=== PATIENT | female | born 1955 | race Caucasian/White ===

== ENCOUNTER 2018-02-06 15:52 | Inpatient (IN) | payer BC ==
[~2018-02-06] VITALS: Ht 160 cm; Wt 58.6 kg
--- NOTE | ~2018-02-06 | HEMODYNAMI ---
PATIENT:PIPER VALDOVINOS MEDICAL RECORD: [id number] : 57 LOCATION:D.MS [facility] ADMISSION DATE: 02/06/18 Generatedon:02/08/201811:33 Patient name: PIPER VALDOVINOS Patient #: [id number] SSN: : 1 12/05/1954 Date of study: 02/08/2018 Page: Of Hemodynamic Procedure Report Patient Data Patient Demographics Procedure consent was obtained First Name: PIPER Gender: Female Last Name: ARUNA : 1955 Middle Initial: E Age: 62 year(s) Patient #: [id number] Race: Unknown Additional ID: [id number] Contact details Address: [address] [place] [address] State: [place] City: [place] Zip code: [address] Past Medical History Allergies: No known allergies Admission Admission Data Admission Date: 02/06/2018 Admission Time: 16:00 Room #: [id number].[id number] Weight (lbs.): 129 Weight (kg.): 58.51 Procedure Procedure Types Cath Procedure Peripheral Cath Diagnostic Procedure Cath Peripheral Nephro Nephrostomy Tubes Procedure Description Procedure Date Procedure Date: 02/08/2018 Procedure Start Time: 11:10 Procedure Staff Name Function Arben Delvalle MD Performing Physician Ophelia Stallworth RT Fiberglass Roving Winder Nhan Theodore CRNA Additional personnel Ophelia Stallworth RT Monitor Megan Gibbs RN Nurse Leonard Olvera RT Scrub Procedure Data Cath Procedure Fluoroscopy Diagnostic fluoroscopy Total fluoroscopy Time: 1.8 time: 1.8 min min Diagnostic fluoroscopy Total fluoroscopy dose: 18 dose: 18 mGy mGy Contrast Material Contrast Material Type Amount (ml) Isovue 300 12 Procedure Medications Medication Administration Route Dosage Heparin Flush Bag added to field 1 bags (1000units/500ml NS) Lidocaine 1% added to field 20 Oxygen NC 3 l/min unlisted medication 1 Hemodynamics Rest Heart Rate: 110 (bpm) Snapshots Pre Cath Intra NCS Post Cath Vital Signs Time Heart Resp SPO2 etCO2 NIBP (mmHg) Rhythm Pain Sedation Rate (ipm) (%) (mmHg) Status Level (bpm) 10:55:02 110 36 99 0 175/119(143) NSR 0 (11) 10(A) , No pain 10:59:24 108 15 99 0 181/119(173) NSR 0 (11) 10(A) , No pain 11:03:43 104 18 99 24.2 166/105(134) NSR 0 (11) 10(A) , No pain 11:07:57 99 0 99 28.8 161/100(132) NSR 0 (11) 10(A) , No pain 11:12:08 93 10 98 0 141/87(114) NSR 0 (11) 8(A) , No pain 11:16:16 86 23 99 28.8 149/101(122) NSR 0 (11) 7(A) , No pain 11:20:28 90 26 99 32.5 147/91(115) NSR 0 (11) 7(A) , No pain 11:24:40 89 17 99 33.3 136/88(109) NSR 0 (11) 7(A) , No pain 11:28:48 88 22 99 32.5 133/88(107) NSR 0 (11) 8(A) , No pain Medications Time Medication Route Dose Verified Delivered Reason Notes Effec tiveness by by 11:03:07 Heparin Flush added 1 Arben Theodore used for Bag to bags Adelia Delvalle procedure (1000units/500ml field MD CLAY NS) 11:03:20 Lidocaine 1% added 20ml Arben Theodore used for to vial Adelia Delvalle procedure field MD CLAY 11:03:35 Oxygen NC 3 Arben Guzman used for l/min Adelia Gibbs RN procedure 11:25:16 CEFEPIME IVP 1 GM Arben Gibbs RN, MD Procedure Log Time Note 10:10:01 Patient Weight : 129 lbs 10:11:22 Use device set IR Diagnostic 10:37:51 KIT, INTRODUCER ACCUSTICK II W/C ([id number]) opened to sterile field. 10:37:56 Sterile Angiographic Pack opened to sterile field. 10:37:57 Bag Decanter (2002S) opened to sterile field. 10:38:05 Time tracking: Call back (After hours or weekends) 10:38:14 Plan of Care:Hemodynamics will remain stable., Cardiac rhythm will remain stable., Comfort level will be maintained., Respiratory function will remain adequate., Patient/ family verbilizes understanding of procedure., Procedure tolerated without complication., Recovers from procedure without complications.. 10:38:24 Patient received from Med/Surg to IR Alert and oriented. Tansferred to table in Prone position. 10:38:27 Correct patient and procedure confirmed by team. 10:38:29 Signed procedure consent form obtained from patient. 10:38:37 H&P Date Dictated: 02/08/2018 Within 30 days and on chart.. 10:38:40 Pre-procedure instructions explained to patient. 10:38:41 Pre-op teaching completed and patient verbalized understanding. 10:38:44 Family unavailable. 10:38:47 Patient NPO since Midnight. 10:39:23 Patient allergic to No known allergies to medicines, but allergic to beef 10:40:09 Is the patient allergic to Iodine/contrast media? No. 10:40:22 - 10:40:23 ----Pre-sedation anethsthesia assessment.---- SEE ANESTHESIA NOTES FOR MONITORING OF PATIENT AND PRE SEDATION ASSESSMENT 10:42:03 - 10:42:27 Left RENAL AREA was prepped with chlora-prep and draped in sterile fashion. 10:53:54 ECG and BP/O2 sat monitors applied to patient. 10:53:55 Vital chart was started 10:53:56 Baseline sample Acquired. 10:53:58 Full Disclosure recording started 10:53:59 - 11:03:07 Heparin Flush Bag (1000units/500ml NS) 1 bags added to field was administered by Arben Delvalle MD; used for procedure; 11:03:20 Lidocaine 1% 20ml vial added to field was administered by Arben helm MD; used for procedure; 11:03:35 Oxygen 3 l/min NC was administered by Megan Gibbs RN; used for procedure; 11:08:59 Physician arrived 11:09:14 --------ALL STOP TIME OUT------ 11:09:14 Final Timeout: patient, procedure, and site verified with staff and physician. All members of the team are in agreement. 11:10:33 Procedure started. 11:10:42 Local anesthetic to RENAL area with Lidocaine 1% by Arben Delvalle MD.INITIAL ACCESS ONLY 11:12:54 CHIBA 20 X 15 needle opened to sterile field. 11:17:57 STOPCOCK 3-Way Large Bore ([id number]) opened to sterile field. 11:17:58 Abscession 8Fr drainage catheter ([id number]) opened to sterile field. 11:25:16 CEFEPIME 1 GM IVP was administered by Megan Gibbs RN; ; 11:26:27 8FR DRAIN PLACED IN THE LEFT KIDNEY 11:26:36 Procedure ended.(Physican Out) 11:26:52 Fluoroscopy time 01.80 minutes. 11:26:56 Fluoroscopy dose: 18 mGy 11:26:56 Flurop Dose total: 18 11:27:05 Contrast amount:Isovue 300 12ml. 11:27:08 Procedure and supply charges have been captured, reviewed, submitted an d are correct. 11:27:48 Tegaderm 6 x 8 (1628) opened to sterile field. 11:33:18 Vital chart was stopped Device Usage Item Name Manufacture Quantity Catalog Hospital Part Current [facility] l Lot# / Number Charge Number Stock Stock Serial# Code Shaun JOHNSTON [id number] 514244 [id number] 5 INTRODUCER Scientific ACCUSTICK II W/C ([id number]) Sterile Cardinal 1 [id number] 209338 404218 5 Angiographic Health Pack Bag Decanter Microtek 1 2001S 606879 41468 714089 5 () Medical Inc. CHIBA 20 X Cook Medical 1 [id number] 645068 899214 5 [id number] 15 needle STOPCOCK [facility] 1 I27015 193933 0380 901015 5 [id number] 3-Way Large Bore (W74072) Abscession Angiodynamics 1 [id number] 151079 425016 537340 5 8Fr drainage catheter ([id number]) Tegaderm 6 x 3M 1 1628 734056 337065 5 8 (1831) Signature Audit Lyons Stage Time Signature Unsigned Intra-Procedure 02/08/2018 Ophelia Stallworth 11:33:16 AM RT(R) Signatures Monitor : Ophelia Stallworth RT Signature : Date : Time : [facility] [address] [place] [address]
--- NOTE | ~2018-02-06 | HEMODYNAMI ---
PATIENT:PIPER VALDOVINOS MEDICAL RECORD: [id number] : 57 LOCATION:D.MS [facility] ADMISSION DATE: 02/06/18 Generatedon:02/11/201813:58 Patient name: PIPER VALDOVINOS Patient #: [id number] SSN: : 1 12/05/1954 Date of study: 02/11/2018 Page: Of Hemodynamic Procedure Report Patient Data Patient Demographics Procedure consent was obtained First Name: PIPER Gender: Female Last Name: ARUNA : 1955 Middle Initial: E Age: 62 year(s) Patient #: [id number] Race: Unknown Additional ID: [id number] Contact details Address: [address] [place] [address] State: [place] City: [place] Zip code: [address] Past Medical History Allergies Allergen Reaction Date Comments Reported Other allergy 02/10/2018 BEEF PRODUCTS Admission Admission Data Admission Date: 02/06/2018 Admission Time: 16:00 Room #: [id number] Weight (lbs.): 129 Weight (kg.): 58.51 Procedure Procedure Types Cath Procedure Peripheral Cath Diagnostic Procedure Nephro Antegrade Nephrostogram Procedure Description Procedure Date Procedure Date: 02/11/2018 Procedure Start Time: 13:40 Procedure End Time: 13:52 Procedure Staff Name Function Leonard Olvera RT Scrub Edu Monsivais MD Performing Physician La Nena Calloway RT Monitor Chelsi Barajas RN Nurse Procedure Data Cath Procedure Fluoroscopy Diagnostic fluoroscopy Total fluoroscopy Time: 0.7 time: 0.7 min min Diagnostic fluoroscopy Total fluoroscopy dose: 23 dose: 23 mGy mGy Contrast Material Contrast Material Type Amount (ml) Isovue 300 8 Procedure Medications Medication Administration Route Dosage Heparin Flush Bag added to field 1 bags (1000units/500ml NS) Hemodynamics Rest Pre Cath Intra NCS Post Cath Medications Time Medication Route Dose Delivered Reason Notes Effectiveness by 13:37:29 Heparin Flush added 1 Bag to bags (1000units/500ml field NS) Procedure Log Time Note 12:56:26 Patient Weight : 129 lbs 13:21:48 Leonard Olvera RT (R) (CV) sent for patient. Start room use. 13:21:53 Time tracking: Regular hours (M-F 7:00 - 5:00) 13:22:31 Use device set IR Diagnostic 13:22:35 Patient received from Med/Surg to IR Alert and oriented. Tansferred to table in Prone position. 13:22:38 Warm blankets applied, on for patient comfort. 13:22:39 Bag Decanter (2002S) opened to sterile field. 13:22:40 Sterile Angiographic Pack opened to sterile field. 13:23:10 Correct patient and procedure confirmed by team. 13:23:31 Signed procedure consent form obtained from patient. 13:23:37 Full Disclosure recording started 13:23:56 H&P Date Dictated: 02/11/2018 Within 30 days and on chart.. 13:24:00 Pre-procedure instructions explained to patient. 13:24:07 Pre-op teaching completed and patient verbalized understanding. 13:24:22 Family unavailable. 13:24:34 Patient NPO since Lunch. 13:24:48 Is the patient allergic to Iodine/contrast media? No. 13:25:25 Patient diabetic? No. 13:25:36 Is patient on blood thinner?No 13:26:50 IV patent on arrival in right hand with 0.9% NaCl at [facility]. 13:27:22 Left Lumbar was prepped with chlora-prep and draped in sterile fashion. 13:27:25 Alarms reviewed by R. N. 13:27:27 Sharps counted by scrub and verified by R.N. 13:27:28 - 13:37:29 Heparin Flush Bag (1000units/500ml NS) 1 bags added to field was administered by ; ; 13:40:08 Physician arrived 13:40:09 --------ALL STOP TIME OUT------ 13:40:11 Final Timeout: patient, procedure, and site verified with staff and physician. All members of the team are in agreement. 13:40:20 Lumbar site verified by team. 13:40:34 Procedure started. 13:40:59 GLIDE WIRE ANGLE 180cm ([id number]) opened to sterile field. 13:42:45 Contrast injected into pigtail. Glidewire used to straighten pigtail an d remove pigtail cath. 13:43:40 Procedure ended.(Physican Out) 13:50:09 Fluoroscopy time 00.70 minutes. 13:50:16 Fluoroscopy dose: 23 mGy 13:50:16 Flurop Dose total: 23 13:50:30 Contrast amount:Isovue 300 8ml. 13:50:34 Sharps counted by scrub and verified by R.N. 13:51:07 Post-op/insertion site Left Lumbar area dressed using Medipore tape. 13:52:03 Post procedure instruction explained to patient.Patient verbalizes understanding. 13:52:05 Patient needs reinforcement of post procedure teaching. 13:52:06 Procedure and supply charges have been captured, reviewed, submitted an d are correct. 13:52:52 Patient transfered to Med/Surg with Bed. 13:52:58 Full Disclosure recording stopped 13:52:58 Procedure ended. Device Usage Item Name Manufacture Quantity Catalog Hospital Part Current Minimal Lot# / Number Charge Number Stock Stock Serial# Code GLIDE WIRE Terumo 1 [id number] 886105 [id number] 5 ANGLE 180cm (DN1888) Bag Decanter Microtek 1 2001S 047944 96286 387257 5 () Medical Inc. Sterile Cardinal [address] 947158 561350 5 Angiographic Health Pack Signature Audit Reinbeck Stage Time Signature Unsigned Intra-Procedure 02/11/2018 La Nena Olvera RT 1:53:42 PM Brodie RT (R) (CV) 02/11/2018 (R) (CV) 1:57:17 PM Intra-Procedure 02/11/2018 Leonard 1:58:01 PM Wade RT (R) (CV) Signatures Monitor : La Nena Signature : Brodie RT Date : Time : [facility] [address] [place] [address]
--- NOTE | ~2018-02-06 | HEMODYNAMI ---
PATIENT:PIPER VALDOVINOS MEDICAL RECORD: [id number] : 57 LOCATION:D.MS [facility] ADMISSION DATE: 02/06/18 Generatedon:02/10/201812:15 Patient name: PIPER VALDOVINOS Patient #: [id number] SSN: : 1 12/05/1954 Date of study: 02/10/2018 Page: Of Hemodynamic Procedure Report Patient Data Patient Demographics Procedure consent was obtained First Name: PIPER Gender: Female Last Name: ARUNA : 1955 Middle Initial: E Age: 62 year(s) Patient #: [id number] Race: Unknown Additional ID: [id number] Contact details Address: [address] [place] [address] State: [place] City: [place] Zip code: [address] Past Medical History Allergies Allergen Reaction Date Comments Reported Other allergy 02/10/2018 BEEF PRODUCTS Admission Admission Data Admission Date: 02/06/2018 Admission Time: 16:00 Room #: [id number] Weight (lbs.): 129 Weight (kg.): 58.51 Procedure Procedure Types Cath Procedure Peripheral Cath Diagnostic Procedure Nephro Ureteral Stent Procedure Description Procedure Date Procedure Date: 02/10/2018 Procedure Start Time: 11:35 Procedure End Time: 12:14 Procedure Staff Name Function Velasquez Hernandez MD Performing Physician La Nena Calloway RT Monitor Leonard Olvera RT Scrub Chelsi Barajas RN Nurse Procedure Data Cath Procedure Fluoroscopy Diagnostic fluoroscopy Total fluoroscopy Time: time: 11.2 min 11.2 min Diagnostic fluoroscopy Total fluoroscopy dose: 190 dose: 190 mGy mGy Contrast Material Contrast Material Type Amount (ml) Isovue 300 30 Procedure Medications Medication Administration Route Dosage Heparin Flush Bag added to field 1 bags (1000units/500ml NS) Lidocaine 1% added to field 20 Oxygen etCO2 Nasal cannula 4 l/min Hemodynamics Rest Heart Rate: 109 (bpm) Snapshots Pre Cath Intra NCS Post Cath Vital Signs Time Heart Resp SPO2 etCO2 NIBP (mmHg) Rhythm Pain Sedation Rate (ipm) (%) (mmHg) Status Level (bpm) 11:22:00 112 18 100 23.3 167/101(140) ST 0 (11) 10(A) , No pain 11:23:45 103 100 0.7 137/87(118) ST 0 (11) 10(A) , No pain 11:27:55 90 8 100 35.3 141/91(118) NSR 0 (11) 10(A) , No pain 11:32:01 93 24 100 33.1 144/94(116) NSR 0 (11) 8(A) , No pain 11:36:09 91 26 99 31.6 132/91(110) NSR 0 (11) 8(A) , No pain 11:40:14 90 13 99 30.8 136/88(101) NSR 0 (11) 8(A) , No pain 11:44:20 82 15 98 30.1 133/94(114) NSR 0 (11) 8(A) , No pain 11:48:30 83 22 98 30.8 133/83(101) NSR 0 (11) 8(A) , No pain 11:52:40 87 17 99 29.3 122/81(95) NSR 0 (11) 8(A) , No pain 11:56:44 82 17 98 31.6 134/83(101) NSR 0 (11) 8(A) , No pain 12:01:28 85 17 99 33.8 127/87(106) NSR 0 (11) 8(A) , No pain 12:05:34 77 18 100 33.1 135/93(107) NSR 0 (11) 8(A) , No pain 12:09:42 132 20 100 33.8 146/97(123) NSR 0 (11) 8(A) , No pain 12:13:42 31.6 No Cuff NSR 0 (11) 8(A) , No pain Medications Time Medication Route Dose Verified Delivered Reason Notes Effec tiveness by by 10:52:08 Heparin Flush added 1 Bag to bags (1000units/500ml field NS) 10:52:23 Lidocaine 1% added 20ml to vial field 11:35:58 Oxygen etCO2 4 M J David Gagnon Per Nasal l/min MD Barajas RN protocol cannula Procedure Log Time Note 10:46:19 Patient Weight : 129 lbs 10:50:04 Leonard Wade RT (R) (CV) sent for patient. Start room use. 10:50:08 Time tracking: Regular hours (M-F 7:00 - 5:00) 10:50:25 Plan of Care:Hemodynamics will remain stable., Cardiac rhythm will remain stable., Comfort level will be maintained., Respiratory function will remain adequate., Patient/ family verbilizes understanding of procedure., Procedure tolerated without complication., Recovers from procedure without complications.. 10:51:33 Use device set IR Diagnostic 10:51:40 Bag Decanter (2002S) opened to sterile field. 10:51:42 Sterile Angiographic Pack opened to sterile field. 10:52:08 Heparin Flush Bag (1000units/500ml NS) 1 bags added to field was administered by ; ; 10:52:23 Lidocaine 1% 20ml vial added to field was administered by ; ; 10:54:46 Cook Gunner 1 7Fr Guide sheath opened to sterile field. 10:54:49 ROADRUNN .035 145 glide wire (X78774) opened to sterile field. 10:54:50 Harden 180 wire (M72748) opened to sterile field. 11:06:42 Patient received from Med/Surg to IR Alert and oriented. Tansferred to table in Prone position. 11:07:03 Warm blankets applied, and kanwal hugger turned on for patient comfort. 11:07:06 Correct patient and procedure confirmed by team. 11:07:14 Signed procedure consent form obtained from patient. 11:07:18 ECG and BP/O2 sat monitors applied to patient. 11:07:22 Full Disclosure recording started 11:07:25 - 11:07:56 H&P Date Dictated: 02/10/2018 Within 30 days and on chart.. 11:07:59 Pre-procedure instructions explained to patient. 11:08:01 Pre-op teaching completed and patient verbalized understanding. 11:10:44 Family unavailable. 11:10:51 Patient NPO since Midnight. 11:10:57 Is the patient allergic to Iodine/contrast media? No. 11:12:12 Patient allergic to Other allergyBEEF PRODUCTS 11:12:31 Is patient on blood thinner?No 11:12:37 Patient diabetic? No. 11:12:43 - 11:12:54 ----Pre-sedation anethsthesia assessment.---- 11:13:00 Previous problem with sedation/anesthesia? No ? 11:13:04 Snore? No 11:13:06 Snore? No 11:13:09 Sleep apnea? No 11:13:12 Deviated septum? No 11:13:15 Opens mouth fully? Yes 11:13:18 Sticks out tongue? Yes 11:13:24 Airway obstruction? No ? 11:13:29 Dentures? No ? 11:14:08 Patient pain scale 3/10 ?. 11:14:24 IV patent on arrival in right wrist with 0.9% NaCl at [facility]. 11:16:01 SEE ANESTHESIA NOTE FOR PRE PROCEDURE TIVA . 11:17:08 Left Lumbar was prepped with chlora-prep and draped in sterile fashion. 11:17:13 Alarms reviewed by RAvtar N. 11:17:14 Sharps counted by scrub and verified by R.N. 11:20:56 Vital chart was started 11:21:00 Baseline sample Acquired. 11:31:11 Physician arrived 11:31:12 --------ALL STOP TIME OUT------ 11:31:15 Final Timeout: patient, procedure, and site verified with staff and physician. All members of the team are in agreement. ::56 Lumbar site verified by team. 11:34:06 Velasquez Hernandez MD present and monitoring patient for TIVA. 11:34:25 Sedation plan: TIVA Medication:Propofol 11:34:43 Procedure started. 11:35:15 Local anesthetic to Lumbar area with Lidocaine 1% by Velasquez Hernandez MD.INITIAL ACCESS ONLY 11:35:58 Oxygen 4 l/min etCO2 Nasal cannula was administered by Chelsi Barajas RN; Per protocol; 11:37:06 BENTSON 145cm wire (A84325) opened to sterile field. 11:37:32 Bentson wire advanced. 11:38:51 Pigtail remove,cook 7fr sheath guide advanced. 11:41:44 Bentson removed, roadrunner wire advanced. 11:42:31 GLIDE WIRE ANGLE 180cm (YY9354) opened to sterile field. 11:43:16 Roadrunner removed, angle glide wire advanced. 11:44:09 GLIDE CATHETER 5FR ANGLED 65cm (CG507) opened to sterile field. 11:45:05 5 fr glide cath advanced over the glidewire into the bladder. 11:52:32 AMPLATZ Super stiff 180cm wire ([id number]) opened to sterile field. 11:52:35 STOPCOCK 3-Way Large Bore (M46506) opened to sterile field. 11:52:36 PEEL-A-WAY INTRODUCER 9FR. opened to sterile field. 11:52:37 BAG, DRAINAGE EMPTY 600ML W/MOOSE (LMU907) opened to sterile field. 11:53:37 SUTURE ETHILON 2-0 BLK MONO FS opened to sterile field. 11:55:24 [place] Sci 8FR.X 24CM Ureteral Stent ([id number]) opened to sterile field. 11:56:02 [place] Sci All Purpose 8Fr drainage catheter ([id number]) opened to sterile field. 11:57:21 The glide cath removed, 9 fr peel away used. 11:58:40 8 Lao X24 cm stent is placed, 8french pigtail placed. 11:59:48 The 8 lebanese pigtail is sutured in placed with 2.0 ethilon. 11:59:56 Procedure ended.(Physican Out) 12:01:21 Fluoroscopy time 11.20 minutes. 12:01:28 Flurop Dose total: 190 12::28 Fluoroscopy dose: 190 mGy 12:01:35 Contrast amount:Isovue 300 30ml. 12:01:38 Sharps counted by scrub and verified by R.N. 12:01:47 Insertion/operative site no bleeding no hematoma. 12:02:55 Post-op/insertion site Left Lumbar area dressed using a Medipore dressing. 12:04:27 Post procedure instruction explained to patient.Patient verbalizes understanding. 12:04:31 Patient needs reinforcement of post procedure teaching. 12:05:25 SEE ANESTHESIA POST PROCEDURE NOTE FOR TIVA. 12:05:41 Procedure and supply charges have been captured, reviewed, submitted an d are correct. 12:09:34 Report given to Med/Surg. 12:09:42 Patient transfered to Med/Surg with Bed. 12:14:11 Procedure ended. 12:14:11 Full Disclosure recording stopped 12:14:21 End room use (Document Last) 12:15:06 Vital chart was stopped Device Usage Item Name Manufacture Quantity Catalog Hospital Part Current Minimal Lot# / Number Charge Number Stock Stock Serial# Code Bag Decanter Microtek 1 [id number] 03099 [id number] 5 () Medical Inc. Sterile Cardinal 1 [id number] 194928 022845 5 Angiographic Health Pack Cook Gunner 1 [employer] Medical 1 Z18136 654858 488601 5 [id number] 7Fr Guide sheath [facility] 1 Z92375 770367 249055 764796 5 [id number] .035 145 glide wire (P02577) Harden [address] [facility] 1 V15477 858043 130552 9623485 5 [id number] wire (I41430) BENTSON [facility] 1 B14861 832507 851702 5 [id number] 145cm wire (K49451) GLIDE WIRE Terumo 1 ZC0571 305224 398177 881367 5 ANGLE 180cm (XV5679) GLIDE Terumo 1 CG507 803289 913451 5 CATHETER 5FR ANGLED 65cm (CG507) AMPLATZ [place] 1 [id number] 838496 540184 5 [id number] Super stiff Scientific 180cm wire ([id number]) STOPCOCK [facility] 1 Z10442 578174 5122 788802 5 [id number] 3-Way Large Bore (M44226) PEEL-A-WAY Cook [facility] 1 V98178 126011 130704 331022 5 [id number] INTRODUCER 9FR. BAG, Merit 1 AEK131 013482 863329 805909 5 DRAINAGE Medical EMPTY 600ML W/MOOSE (OUN662) SUTURE Ethicon 1 664H 408994 666575 5 ETHILON 2-0 BLK MONO FS [facility] [place] 1 [id number] 705319 844950 363668 5 8FR.X 24CM Scientific Ureteral Stent ([id number]) [place] [facility] 1 [id number] 997877 403565 559590 5 All Purpose Scientific 8Fr drainage catheter ([id number]) Signature Audit Fiatt Stage Time Signature Unsigned Intra-Procedure 02/10/2018 La Nena 12:14:53 PM Brodie VELASQUEZ (Erasto) (CV) Signatures Monitor : La Nena Signature : Brodie RT Date : Time : [place] [address] [place] [address]
--- NOTE | ~2018-02-06 | OP ---
PATIENT NAME: PIPER VALDOVINOS MEDICAL RECORD: [id number] :57 LOCATION:[id number] ADMISSION DATE:02/06/18 SURGEON: RAH WHITLEY MD DATE OF OPERATION: 02/08/2018 PREOPERATIVE DIAGNOSES: 1. Left supraclavicular lymphadenopathy. 2. Hydronephrosis. 3. Pelvic lymphadenopathy. 4. History of endometrial carcinoma. POSTOPERATIVE DIAGNOSES: 1. Left supraclavicular lymphadenopathy. 2. Hydronephrosis. 3. Pelvic lymphadenopathy. 4. History of endometrial carcinoma. PROCEDURES: 1. Left subclavian vein port placement. 2. Left supraclavicular lymph node biopsy. SURGEON: Rah Whitley MD REPORT OF PROCEDURE: The patient's chest and left neck were prepped and draped in sterile fashion. A needle was used to cannulate the left subclavian vein and a guidewire was advanced with ease. Fluoro was used to note that the wire was in good position in the venous system. A skin incision was made on the left superior lateral chest and a subcutaneous pouch was made over the pectoral fascia. The catheter was tunneled between this pouch and the wire exit site. The port was sutured to the pectoral fascia using interrupted 2-0 Prolene. The catheter was cut with a beveled tip at 21 cm. The dilator trocar device was placed over the wire and the wire and dilator were removed. The catheter was advanced through the trocar and the trocar was removed. Fluoro was used to note that the catheter tip rested in good position in the superior vena cava. The catheter aspirated nonpulsatile dark blood and flushed easily with heparinized saline. The subcutaneous tissues were reapproximated with interrupted 3-0 Vicryls, and the skin was closed with running subcutaneous 5-0 Monocryl. An oblique incision was made over the left medial supraclavicular space. Electrocautery was used to dissect through the subcutaneous tissues down to an enlarged lymph node. I was able to get all the way around the lymph node, but could not free it up posteriorly. Due to the amount of vasculature and nervous tissue, which was present in this area, I decided not to continue the dissection any further. I went ahead and just took the top half of the lymph node off using electrocautery and sent it for permanent specimen. Any bleeding from the lymph node bed was then treated with electrocautery. The subcutaneous tissues were irrigated out with normal saline and then reapproximated with interrupted 3-0 Vicryls. The skin was closed with running subcutaneous 5-0 Monocryl. During the case, a total of 10 mL of 0.25% Marcaine with epinephrine was used in the 2 incision sites. We then accessed the port and flushed it once again with heparinized saline. Dressings were then applied to the wounds. COMPLICATIONS: None. CONDITION: Stable. OPERATIVE REPORT [id number] PIPER VALDOVINOS ANESTHESIA: TIVA, local. BLOOD LOSS: 30 mL. TRANSINT:[id number] Voice Confirmation ID: [id number] DOCUMENT ID: [id number] RAH WHITLEY MD at 1052 CC: GENEVA BUNCH and ADIEL MURPHY [id number] DICTATION DATE: 02/08/18 1258 [employer]OR VEHICLE EMISSIONS INSPECTOR: 02/08/[address] [facility] [address] [place] [address]
[2018-02-06] MEDS ORDERED: ZOFRAN ODT4 MG/UDTAB PO (16:49)
[2018-02-06] MEDS ORDERED: ATIVAN1 MG PO (16:49)
[2018-02-06] MEDS ORDERED: NORCO 7.5/325 T1 TA1 PO (16:50)
[2018-02-06 18:25] LABS: APPEARANCE CLEAR (CLEAR); BILIRUBIN NEGATIVE (NEGATIVE); COLOR YELLOW (YELLOW); GLUCOSE NEGATIVE (NEGATIVE); KETONE NEGATIVE (NEGATIVE); NITRITE NEGATIVE (NEGATIVE); PROTEIN NEGATIVE (NEGATIVE); UROBILINOGEN NORMAL (NORMAL)
[2018-02-06 19:21] LABS: BASOPHILS 0.2 % (0-2); EOSINOPHILS 1.6 % (0-7); HEMATOCRIT 37.1 % (36.0-48.0); HEMOGLOBIN 12.3 g/dL (12-16); IMMATURE GRANULOCYTES 0.2 % (0-5); LYMPHOCYTES 19.3 % (15-50); MCH 29.5 pg (26.0-34.0); MCHC 33.2 g/dL (31.0-37.0); MEAN PLATELET VOLUME 10.4 fL (7.4-10.4); MONOCYTES 9.8 % (2-11); NEUTROPHILS 68.9 % (40-80); PLATELET COUNT 280 10x3/uL (130-400); RBC 4.17 10x6/uL (4.00-5.40); RDW 12.6 % (11.5-14.5); WBC 5.6 10x3/uL (4.8-10.8)
[2018-02-06 19:26] VITALS: Ht 160 cm; Wt 58.6 kg
[2018-02-06 19:49] LABS: ALBUMIN 3.1 g/dL (3.4-5.0); ANION GAP 17.8 mmol/L (8-16); BILIRUBIN - TOTAL 0.33 mg/dL (0.2-1.3); CALCIUM 8.6 mg/dL (8.5-10.1); CARBON DIOXIDE 23.1 mmol/L (21.0-32.0); CREATININE - SERUM 1.3 mg/dL (0.6-1.3); POTASSIUM - SERUM 3.9 mmol/L (3.5-5.1); PROTEIN - SERUM 7.1 g/dL (6.4-8.2)
[2018-02-07 01:20] VITALS: BP 150/97
[2018-02-07 05:24] VITALS: BP 133/87
[2018-02-07 08:23] VITALS: BP 142/87
[2018-02-07 12:33] VITALS: BP 165/91
[2018-02-07 12:57] LABS: APTT 30.9 SECONDS (22.8-39.4); INR 0.89 (0.85-1.17); PROTIME 11.7 SECONDS (11.6-15.0)
[2018-02-07 16:19] VITALS: BP 124/83
[2018-02-07 22:58] VITALS: BP 134/69
[2018-02-08 05:32] VITALS: BP 130/89
[2018-02-08 06:40] LABS: BASOPHILS 0.2 % (0-2); EOSINOPHILS 2.9 % (0-7); HEMATOCRIT 37.4 % (36.0-48.0); IMMATURE GRANULOCYTES 0.2 % (0-5); LYMPHOCYTES 18.8 % (15-50); MCH 28.7 pg (26.0-34.0); MCHC 32.1 g/dL (31.0-37.0); MCV 89.5 fL (80.0-100.0); MEAN PLATELET VOLUME 10.2 fL (7.4-10.4); MONOCYTES 10.3 % (2-11); NEUTROPHILS 67.6 % (40-80); PLATELET COUNT 270 10x3/uL (130-400); RBC 4.18 10x6/uL (4.00-5.40); RDW 12.6 % (11.5-14.5); WBC 4.2 10x3/uL (4.8-10.8)
[2018-02-08 07:03] LABS: ALBUMIN 3.1 g/dL (3.4-5.0); ANION GAP 14.2 mmol/L (8-16); BILIRUBIN - TOTAL 0.3 mg/dL (0.2-1.3); CALCIUM 9.3 mg/dL (8.5-10.1); CARBON DIOXIDE 26.9 mmol/L (21.0-32.0); CREATININE - SERUM 1.5 mg/dL (0.6-1.3); POTASSIUM - SERUM 4.1 mmol/L (3.5-5.1)
[2018-02-08 08:16] VITALS: BP 152/99
[2018-02-08 13:54] VITALS: BP 161/86
[2018-02-08 15:55] VITALS: BP 115/88
[2018-02-08 21:56] VITALS: BP 153/90
[2018-02-08 21:58] VITALS: BP 153/91
[2018-02-09 04:05] VITALS: BP 171/62
[2018-02-09 05:13] LABS: BASOPHILS 0.4 % (0-2); EOSINOPHILS 2.2 % (0-7); HEMATOCRIT 35.7 % (36.0-48.0); HEMOGLOBIN 11.5 g/dL (12-16); LYMPHOCYTES 22.6 % (15-50); MCH 28.8 pg (26.0-34.0); MCHC 32.2 g/dL (31.0-37.0); MCV 89.5 fL (80.0-100.0); MEAN PLATELET VOLUME 10.4 fL (7.4-10.4); NEUTROPHILS 62.8 % (40-80); PLATELET COUNT 249 10x3/uL (130-400); RBC 3.99 10x6/uL (4.00-5.40); RDW 12.7 % (11.5-14.5); WBC 4.6 10x3/uL (4.8-10.8)
[2018-02-09 05:44] LABS: ALBUMIN 2.7 g/dL (3.4-5.0); ANION GAP 15.4 mmol/L (8-16); BILIRUBIN - TOTAL 0.31 mg/dL (0.2-1.3); CALCIUM 8.8 mg/dL (8.5-10.1); CARBON DIOXIDE 23.4 mmol/L (21.0-32.0); CREATININE - SERUM 1.2 mg/dL (0.6-1.3); POTASSIUM - SERUM 3.8 mmol/L (3.5-5.1)
[2018-02-09 09:41] VITALS: BP 156/75
[2018-02-09 13:12] VITALS: BP 158/92
[2018-02-09 17:17] VITALS: BP 143/72
[2018-02-09 23:01] VITALS: BP 162/100
[2018-02-10 06:25] VITALS: BP 145/102
[2018-02-10 07:46] LABS: BASOPHILS 0.4 % (0-2); HEMATOCRIT 36.9 % (36.0-48.0); HEMOGLOBIN 11.9 g/dL (12-16); LYMPHOCYTES 12.9 % (15-50); MCH 28.8 pg (26.0-34.0); MCHC 32.2 g/dL (31.0-37.0); MCV 89.3 fL (80.0-100.0); MEAN PLATELET VOLUME 10.7 fL (7.4-10.4); NEUTROPHILS 69.7 % (40-80); PLATELET COUNT 267 10x3/uL (130-400); RBC 4.13 10x6/uL (4.00-5.40); RDW 12.7 % (11.5-14.5); WBC 5.1 10x3/uL (4.8-10.8)
[2018-02-10 07:52] LABS: INR 1.01 (0.85-1.17); PROTIME 12.9 SECONDS (11.6-15.0)
[2018-02-10 07:53] LABS: APTT 32.2 SECONDS (22.8-39.4)
[2018-02-10 08:02] LABS: ALBUMIN 2.9 g/dL (3.4-5.0); ANION GAP 15.2 mmol/L (8-16); BILIRUBIN - TOTAL 0.3 mg/dL (0.2-1.3); CALCIUM 9.4 mg/dL (8.5-10.1); CARBON DIOXIDE 25.4 mmol/L (21.0-32.0); CREATININE - SERUM 1.3 mg/dL (0.6-1.3); POTASSIUM - SERUM 3.6 mmol/L (3.5-5.1); PROTEIN - SERUM 7.5 g/dL (6.4-8.2)
[2018-02-10 08:42] VITALS: BP 142/97
[2018-02-10 16:28] VITALS: BP 113/65
[2018-02-10 20:00] VITALS: BP 137/83
[2018-02-11 04:00] VITALS: BP 126/83
[2018-02-11 06:48] LABS: BASOPHILS 0.5 % (0-2); EOSINOPHILS 6.3 % (0-7); HEMATOCRIT 36.5 % (36.0-48.0); HEMOGLOBIN 11.8 g/dL (12-16); LYMPHOCYTES 15.6 % (15-50); MCH 28.8 pg (26.0-34.0); MCHC 32.3 g/dL (31.0-37.0); MEAN PLATELET VOLUME 10.7 fL (7.4-10.4); MONOCYTES 10.2 % (2-11); NEUTROPHILS 67.4 % (40-80); PLATELET COUNT 281 10x3/uL (130-400); RDW 12.7 % (11.5-14.5); WBC 4.4 10x3/uL (4.8-10.8)
[2018-02-11 07:17] LABS: ALBUMIN 2.9 g/dL (3.4-5.0); ANION GAP 13.9 mmol/L (8-16); BILIRUBIN - TOTAL 0.4 mg/dL (0.2-1.3); CALCIUM 9.2 mg/dL (8.5-10.1); CARBON DIOXIDE 25.7 mmol/L (21.0-32.0); CREATININE - SERUM 1.2 mg/dL (0.6-1.3); POTASSIUM - SERUM 3.6 mmol/L (3.5-5.1); PROTEIN - SERUM 7.4 g/dL (6.4-8.2)
[2018-02-11 09:21] VITALS: BP 134/98
[2018-02-11 12:31] VITALS: BP 143/92
[2018-02-11 16:53] VITALS: BP 151/94
[2018-02-11 20:00] VITALS: BP 155/90
[2018-02-12] VITALS: BP 149/94
[2018-02-12 04:00] VITALS: BP 139/87
[2018-02-12 05:10] LABS: BASOPHILS 0.3 % (0-2); EOSINOPHILS 9.7 % (0-7); HEMATOCRIT 35.6 % (36.0-48.0); HEMOGLOBIN 11.3 g/dL (12-16); LYMPHOCYTES 33.7 % (15-50); MCH 28.3 pg (26.0-34.0); MCHC 31.7 g/dL (31.0-37.0); MCV 89.2 fL (80.0-100.0); MEAN PLATELET VOLUME 10.7 fL (7.4-10.4); MONOCYTES 11.4 % (2-11); NEUTROPHILS 44.9 % (40-80); PLATELET COUNT 276 10x3/uL (130-400); RBC 3.99 10x6/uL (4.00-5.40); RDW 12.8 % (11.5-14.5); WBC 3.4 10x3/uL (4.8-10.8)
[2018-02-12 05:30] LABS: ALBUMIN 2.7 g/dL (3.4-5.0); ANION GAP 12.1 mmol/L (8-16); BILIRUBIN - TOTAL 0.3 mg/dL (0.2-1.3); CALCIUM 9.2 mg/dL (8.5-10.1); CARBON DIOXIDE 27.8 mmol/L (21.0-32.0); CREATININE - SERUM 1.3 mg/dL (0.6-1.3); POTASSIUM - SERUM 3.9 mmol/L (3.5-5.1); PROTEIN - SERUM 7.1 g/dL (6.4-8.2)
[2018-02-12 09:19] VITALS: BP 121/90
[2018-02-12] MEDS ORDERED: Zovirax TOPICAL (12:47)
[2018-02-12 13:03] VITALS: BP 150/92
== END 2018-02-12 15:15 | disposition home or self-care (01) | DRG 824 ==
LOC: D.M2 15:52 → D.MS 16:00
PROVIDERS: Family Medicine; Internal Medicine Hematology & Oncology; Internal Medicine Nephrology; Radiology Diagnostic Radiology; Radiology Vascular & Interventional Radiology; Surgery
PROC: 0T9430Z Drainage of Left Kidney Pelvis with Drainage Device, Percutaneous Approach (ICD-10-PCS; 2018-02-08)
PROC: BT1F1ZZ Fluoroscopy of Left Kidney, Ureter and Bladder using Low Osmolar Contrast (ICD-10-PCS; 2018-02-08)
PROC: 0JH63WZ Insertion of Totally Implantable Vascular Access Device into Chest Subcutaneous Tissue and Fascia, Percutaneous Approach (ICD-10-PCS; principal; 2018-02-08 10:30)
PROC: 07B23ZX Excision of Left Neck Lymphatic, Percutaneous Approach, Diagnostic (ICD-10-PCS; 2018-02-08 11:40)
PROC: 0T773DZ Dilation of Left Ureter with Intraluminal Device, Percutaneous Approach (ICD-10-PCS; 2018-02-10)
PROC: 0T25X0Z Change Drainage Device in Kidney, External Approach (ICD-10-PCS; 2018-02-10)
PROC: 0TP5X0Z Removal of Drainage Device from Kidney, External Approach (ICD-10-PCS; 2018-02-11)
DX: C77.8 Secondary and unspecified malignant neoplasm of lymph nodes of multiple regions (principal); N13.30 Unspecified hydronephrosis; N17.9 Acute kidney failure, unspecified; C54.1 Malignant neoplasm of endometrium; I10 Essential (primary) hypertension

== ENCOUNTER → 2018-07-15 16:06 | Outpatient (CLI) | payer BC ==
[~2018-07-15 16:06] MED LIST: ATIVAN1 MG PO; NORCO 7.5/325 T1 TA1 PO; ZOFRAN ODT4 MG/UDTAB PO; Zovirax TOPICAL
== END | disposition home or self-care (01) ==
LOC: D.LABREF 16:06
DX: D72.829 Elevated white blood cell count, unspecified (principal); R31.9 Hematuria, unspecified

== ENCOUNTER 2018-07-30 05:55 | Day surgery (SDC) | payer BC ==
[~2018-07-30] VITALS: Ht 160 cm; Wt 50.3 kg
--- NOTE | ~2018-07-30 | OP ---
PATIENT NAME: PIPER VALDOVINOS MEDICAL RECORD: [id number] :57 LOCATION:D.OPS ADMISSION DATE: SURGEON: ARMANI LESLIE MD DATE OF OPERATION: 07/30/2018 SURGEON: Armani Leslie MD VICE PROVOST: MAXINE Phelps CRNA. DIAGNOSES: Metastatic lung and uterine cancer with retroperitoneal lymphadenopathy causing left hydronephrosis. PROCEDURES: Cystoscopy, left ureteral stent removal, left retrograde pyelogram, left ureteral stent insertion 6-Burmese x 22 cm resonance metal stent. SPECIMENS: Old left ureteral stent. FINDINGS: Single ureteral orifices bilaterally. No bladder tumors. On retrograde pyelogram, medial deviation of the left proximal ureter with ureteral stenosis from the UPJ containing all along the proximal one-third of the ureter. CLINICAL HISTORY: This is a 62-year-old female, who has metastatic non-small cell lung cancer as well as uterine cancer. She is on chemotherapy and radiation. She has known lymphadenopathy in the retroperitoneum causing obstruction of the left ureter. Earlier this year, she had placement of a left nephrostomy tube and then eventually an antegrade placement of a left ureteral stent. That stent is now over 3 months old and also she had an intervening urinary tract infection. Thus, she needs to have the stent exchanged. Because of ongoing cancer treatment, she will require a mental stent, which we can keep in place for up to 1 year as long as it does not get infected. She was covered with Ancef cook station to the OR. DESCRIPTION OF PROCEDURE: The patient was given IV sedation. She was placed into dorsal lithotomy position and prepped and draped. A 21-Burmese cystoscope with 30-degree lens was used for visualization. Findings are as outlined above. The old left ureteral stent was removed using grasping forceps. It was sent to pathology for identification. An open-ended ureteral catheter was then inserted into the left ureteral orifice and diluted contrast was injected. There is no hydronephrosis in the distal ureter. However, in the proximal ureter, the ureteral lumen is very stenotic and only with injection of a large volume of contrast that we get the contrast to finally make its way up into the kidney to outline the renal pelvis. The region of the ureteral obstruction starts right from the UP junction. We then inserted a Sensor wire through the lumen of the ureteral catheter up to the renal pelvis. The ureteral catheter was then removed entirely. The EchoSign ureteral access sheath and ureteral catheter were placed over the guidewire up into the renal pelvis. Once the radiopaque marker on the ureteral sheath indicated that it was in correct position, then we removed both the guidewire and the ureteral catheter entirely. Through the lumen of the ureteral sheath, we inserted the metal resonance stent. Once the stent was in correct position, the ureteral sheath was then withdrawn, leaving the stent in position. Final fluoroscopy revealed the stent to be in good position. The bladder was emptied through the cystoscope sheath and the patient was brought back to her preoperative holding area. I will see the patient in followup on a p.r.n. basis or at 1 year depending on whichever comes first. OPERATIVE REPORT [id number] PIPER VALDOVINOS TRANSINT:[id number] Voice Confirmation ID: [id number] DOCUMENT ID: [id number] ARMANI LESLIE MD at 1300 CC: [id number] DICTATION DATE: 07/30/18 1036 CERTIFIED REGISTERED NURSE PRACTITIONER: 07/30/18 1215 [facility] 07/30/18 [id number] [place] [address]
[2018-07-30 06:23] LABS: HEMATOCRIT 36.1 % (36.0-48.0); HEMOGLOBIN 11.8 g/dL (12-16); MCHC 32.7 g/dL (31.0-37.0); MCV 94.8 fL (80.0-100.0); MEAN PLATELET VOLUME 9.7 fL (7.4-10.4); PLATELET COUNT 257 10x3/uL (130-400); RBC 3.81 10x6/uL (4.00-5.40); RDW 15.4 % (11.5-14.5); WBC 2.7 10x3/uL (4.8-10.8)
[2018-07-30 06:43] LABS: APTT 26.3 SECONDS (22.8-39.4); INR 0.98 (0.85-1.17); PROTIME 12.6 SECONDS (11.6-15.0)
[2018-07-30 06:53] VITALS: BP 144/88; Ht 160 cm; Wt 50.3 kg
[2018-07-30 07:22] LABS: BASOPHILS 1 % (0-2); EOSINOPHILS 1 % (0-7); LYMPHOCYTES 37 % (15-50); MONOCYTES 5 % (2-11); NEUTROPHILS 54 % (40-80); PLATELET ESTIMATE NORMAL
== END 2018-07-30 11:35 | disposition home or self-care (01) ==
LOC: D.OPS 05:55 → D.PAN 08:15 → D.OPS 10:00 → D.PAN 11:00 → D.OPS 11:35
PROVIDERS: Anesthesiology
DX: N13.1 Hydronephrosis with ureteral stricture, not elsewhere classified (principal); R59.0 Localized enlarged lymph nodes; C34.90 Malignant neoplasm of unspecified part of unspecified bronchus or lung; C79.9 Secondary malignant neoplasm of unspecified site; C55 Malignant neoplasm of uterus, part unspecified; Z92.3 Personal history of irradiation; Z79.899 Other long term (current) drug therapy; Z01.812 Encounter for preprocedural laboratory examination